=== PATIENT | female | born 1955 | race Caucasian/White ===

== ENCOUNTER 2019-01-24 16:10 | Emergency (ER) | payer MEDICARE, OTHER ==
[2019-01-24 17:13] LABS: INR-International Normal Ratio 1.2; Prothrombin Time 14.9 SEC (12.0-14.7)
[2019-01-24 17:19] LABS: PTT 22.7 SEC (22.9-36.1)
[2019-01-24 17:20] LABS: #Lymphocytes 0.5 thou/uL (1.20-3.40); #Monocytes 0.5 thou/uL (0.11-0.59); #Neutrophils 3.7 thou/uL (1.40-6.50); %Basophils 0.2 % (0.0-1.0); %Eosinophils 0.7 % (0.0-10.0); %Lymphocytes 9.9 % (21.0-51.0); %Monocytes 9.9 % (0.0-10.0); %Neutrophils 79.3 % (42.0-75.0); Hemoglobin 13.9 g/dL (12.0-16.0); Mean Corpuscular HGB CONC 33.3 g/dL (32.0-36.0); Mean Corpuscular Hemoglobin 31.3 pg (27.0-31.0); Mean Corpuscular Volume 93.9 fL (78.0-98.0); Mean Platelet Volume 8.3 fL (7.4-10.4); Platelet Count 97 thou/uL (130-400); RBC Distribution Width 14.1 % (11.5-14.5); Red Blood Cell (RBC) Count 4.43 mill/uL (4.20-5.40); White Blood Cell (WBC) Count 4.7 thou/uL (4.8-10.8)
[2019-01-24 17:27] LABS: ALT (SGPT) 16 U/L (8-55); AST (SGOT) 26 U/L (5-34); Albumin 3.8 g/dL (3.4-4.8); Alkaline Phosphatase 123 U/L (40-150); Anion Gap 15 mmol/L (10-20); BUN (Urea Nitrogen) 21 mg/dL (9.8-20.1); Bilirubin, Total 0.8 mg/dL (0.2-1.2); Calc. Creatinine Clearance 0 mL/min (70-130); Calcium 9.8 mg/dL (7.8-10.44); Carbon Dioxide 19 mmol/L (23-31); Chloride 104 mmol/L (98-107); Estimated GFR-MDRD 48; Globulin 3.5 g/dL (2.4-3.5); Glucose 261 mg/dL (80-115); Potassium 5.3 mmol/L (3.5-5.1); Protein, Total 7.3 g/dL (6.0-8.3); Sodium 133 mmol/L (136-145)
--- NOTE | 2019-01-24 17:41 | RAD ---
Portable chest: HISTORY: Hypertension COMPARISON: none FINDINGS: Lung villasenor are clear. Heart and mediastinum appear unremarkable. Vascularity is normal. Visualized osseous structures unremarkable. Postop sternotomy change. AICD leads are noted. IMPRESSION: No acute finding
[2019-01-24 17:52] LABS: Bilirubin Small (Negative); Blood, Urine Negative (Negative); Clarity CLOUDY (Clear); Glucose, Urine (Dipstick) 500 mg/dL (Negative); Leukocyte Negative (Negative); Nitrite Positive (Negative); Protein, Urine (Dipstick) Negative (Neg-Trace); Specific Gravity, Urine 1.023 (1.002-1.036); Urobilinogen 0.2 mg/dL (0.2-1.0)
[2019-01-24 17:58] LABS: Bacteria/HPF 4+ HPF (None Seen); Hyaline Casts/LPF 0-3 HYALINE CAST LPF (0-3 Hyaline); Pathc Cast-AUWi Flag 0.54 (0-2.49); RBC/HPF 0-3 HPF (0-3); WBC/HPF 0-3 HPF (0-3)
--- NOTE | 2019-01-24 18:15 | CT ---
CT abdomen and pelvis with IV contrast. Oral contrast was not administered. INDICATIONS: Bloody stool and diarrhea. Abdominal pain. COMPARISON: CT abdomen pelvis 11/17/2016 FINDINGS: Numerous small nodules are seen in the right lung base at least one of which is calcified. These appe ar stable from prior exam. Liver, spleen, and pancreas appear unremarkable. Stomach and duodenum appear unremarkable. Adrenal glands appear normal. Bilateral renal cystic lesions or cysts appear stable. The largest cyst in the left kidney measures 5 .5 cm. Small bowel loops are normal caliber and exhibit normal fold pattern. Appendix is not definitely identified. There is inflammatory stranding in the mesentery surrounding t he tip of the cecum. This is a new finding. Transverse colon and left colon are poorly distended. There is evidence of diffuse mural thickening s uggesting colitis. Aorta is normal caliber. No evidence of retroperitoneal or mesenteric adenopathy. Evidence of hysterectomy. Urinary bladder is contracted. Subcutaneous tissues, abdominal wall, and muscular structures appear unremarkable. Osseous structures appear unremarkable. IMPRESSION: 1. Inflammatory change involving the distal cecum. Appendix is not definitely identified. Mural thick ening involving the transverse colon and left colon suggesting diffuse colitis. Mild inflammatory changes surrounding the descending colon.
== END 2019-01-24 19:23 | disposition home or self-care (01) ==
LOC: ERS 16:10
DX: K52.9 Noninfective gastroenteritis and colitis, unspecified (principal); E86.0 Dehydration; I95.9 Hypotension, unspecified; N39.0 Urinary tract infection, site not specified; E11.9 Type 2 diabetes mellitus without complications; I10 Essential (primary) hypertension; E03.9 Hypothyroidism, unspecified; D50.9 Iron deficiency anemia, unspecified; I25.10 Atherosclerotic heart disease of native coronary artery without angina pectoris; D69.6 Thrombocytopenia, unspecified
CPT/HCPCS: 36415; 71045; 74177; 80053; 81003; 81015; 83605; 83735; 84443; 84484; 85025; 85610; 85730; 86850; 86900; 86901; 93005; 96360

== ENCOUNTER 2023-05-01 13:57 | Inpatient (IN) | payer MEDICARE, OTHER ==
[2023-05-01 17:42] VITALS: BMI 25.7
[2023-05-01] MEDS ORDERED: Dextrose 5% in Water 1,000 ML IV PRN (20:11)
[2023-05-01] MEDS ORDERED: HumaLOG 300 UNITS/3 ML VIAL SC PRN ×2 (20:11)
[2023-05-01] MEDS ORDERED: Glucagon 1 MG/ML KIT IM PRN (20:11)
[2023-05-01] MEDS ORDERED: Dextrose 50% Abboject 50 ML SYRINGE SLOW IVP PRN (20:11)
[2023-05-01] MEDS ORDERED: UBIDECARENONE 10 MG PO SCH (21:00)
[2023-05-01] MEDS ORDERED: Allopurinol 100 MG TAB PO SCH ×2 (21:00→22:00)
[2023-05-01] MEDS ORDERED: metFORMIN XR 500 MG ER.TAB PO SCH ×2 (21:00→22:00)
[2023-05-01 21:26] LABS: Anion Gap 12 mmol/L (10-20); BUN (Urea Nitrogen) 25 mg/dL (9.8-20.1); Calc. Creatinine Clearance 32 mL/min (70-130); Calcium 9.3 mg/dL (7.8-10.44); Carbon Dioxide 23 mmol/L (23-31); Chloride 104 mmol/L (98-107); Estimated GFR 30; Glucose 153 mg/dL (80-115); Potassium 5.9 mmol/L (3.5-5.1); Sodium 133 mmol/L (136-145)
[2023-05-01] MEDS: Sotalol HCl 80 MG TAB PO SCH (21:31)
[2023-05-01] MEDS: Docusate 100 MG CAP PO SCH (21:32)
[2023-05-01] MEDS: Aspirin 81 mg Enteric Coated Tablet PO SCH (21:33)
[2023-05-01] MEDS: Clopidogrel Bisulfate 75 MG TAB PO SCH (21:33)
[2023-05-01] MEDS: Cyclobenzaprine 10 MG TAB PO SCH (21:33)
[2023-05-01] MEDS: Magnesium Oxide 250 MG TAB PO SCH (21:34)
[2023-05-01] MEDS: Ranolazine 500 MG ER.TAB PO SCH (21:34)
[2023-05-01] MEDS: Rosuvastatin 20 MG TAB PO SCH (21:35)
[2023-05-01] MEDS: HYDROcodone/Acetaminophen 5/325 mg Tablet PO PRN (21:37)
[2023-05-01] MEDS: Levothyroxine Sodium 88 MCG TAB PO SCH (21:49)
[2023-05-01] MEDS ORDERED: Fentanyl 100 MCG/2 ML VIAL SLOW IVP PRN (21:51)
[2023-05-01] MEDS ORDERED: Sodium Chloride 0.9% 1,000 ML IV SCH (22:00)
[2023-05-01] MEDS ORDERED: Tamsulosin HCl 0.4 MG CAP PO SCH (22:15)
[2023-05-01] MEDS ORDERED: CALCIUM GLUC 1 GM/NS 50 ML 1 GM in Premix Bag 1 BAG IVPB SCH (22:30)
[2023-05-01] MEDS ORDERED: LOKELMA 10 GM PACKET PO SCH (22:45)
[2023-05-01] MEDS ORDERED: Acetaminophen 500 MG TAB PO SCH (22:45)
[2023-05-01] MEDS: Ondansetron ODT 4 MG TAB PO PRN (23:34)
[2023-05-02] MEDS ORDERED: fentaNYL 50 mcg/mL 1 mL Vial SLOW IVP PRN ×2 (00:24→16:15)
[2023-05-02] MEDS ORDERED: HYDROcodone/Acetaminophen 5/325 mg Tablet PO SCH (01:45)
[2023-05-02 02:28] LABS: Anion Gap 14 mmol/L (10-20); BUN (Urea Nitrogen) 26 mg/dL (9.8-20.1); Calc. Creatinine Clearance 30 mL/min (70-130); Calcium 9.5 mg/dL (7.8-10.44); Carbon Dioxide 21 mmol/L (23-31); Chloride 101 mmol/L (98-107); Estimated GFR 28; Glucose 144 mg/dL (80-115); Potassium 5.4 mmol/L (3.5-5.1); Sodium 131 mmol/L (136-145)
[2023-05-02] MEDS: Ondansetron ODT 4 MG TAB PO PRN ×3 (03:13→14:46)
[2023-05-02 05:58] LABS: #Eosinphils 0.1 thou/uL (0.0-0.7); #Monocytes 0.5 thou/uL (0.11-0.59); %Basophils 0.2 % (0.0-1.0); %Eosinophils 1.1 % (0.0-10.0); %Lymphocytes 10.9 % (21.0-51.0); %Monocytes 10.3 % (0.0-10.0); %Neutrophils 76.9 % (42.0-75.0); Hematocrit 35.9 % (36.0-47.0); Hemoglobin 12.2 g/dL (12.0-16.0); Mean Corpuscular Hemoglobin 31.8 pg (27.0-31.0); Mean Corpuscular Volume 93.5 fl (78.0-98.0); RBC Distribution Width 12.2 % (11.5-14.5); Red Blood Cell (RBC) Count 3.84 mill/uL (4.20-5.40); White Blood Cell (WBC) Count 5.2 10x3/uL (4.8-10.8)
[2023-05-02 06:01] LABS: Platelet Count 82 10x3/uL (130-400)
[2023-05-02 07:17] LABS: ALT (SGPT) 17 U/L (8-55); AST (SGOT) 23 U/L (5-34); Alkaline Phosphatase 103 U/L (40-110); Anion Gap 13 mmol/L (10-20); BUN (Urea Nitrogen) 27 mg/dL (9.8-20.1); Bilirubin, Total 0.5 mg/dL (0.2-1.2); Calc. Creatinine Clearance 30 mL/min (70-130); Calcium 9.6 mg/dL (7.8-10.44); Carbon Dioxide 22 mmol/L (23-31); Chloride 102 mmol/L (98-107); Estimated GFR 28; Globulin 3.1 g/dL (2.4-3.5); Glucose 178 mg/dL (80-115); Potassium 5.7 mmol/L (3.5-5.1); Protein, Total 7.1 g/dL (5.8-8.1); Sodium 131 mmol/L (136-145)
[2023-05-02] MEDS: Cyclobenzaprine 10 MG TAB PO SCH ×2 (08:33→20:42)
[2023-05-02] MEDS: Acetaminophen 500 MG TAB PO SCH ×3 (08:34→20:42)
[2023-05-02] MEDS ORDERED: Acetaminophen 500 MG TAB PO SCH (09:00)
[2023-05-02] MEDS: HYDROcodone/Acetaminophen 5/325 mg Tablet PO PRN ×2 (10:04→20:47)
[2023-05-02] MEDS ORDERED: Meperidine HCl/PF 25 MG/ML VIAL SLOW IVP PRN (14:12)
[2023-05-02 17:01] LABS: Anion Gap 13 mmol/L (10-20); BUN (Urea Nitrogen) 27 mg/dL (9.8-20.1); Calc. Creatinine Clearance 29 mL/min (70-130); Calcium 9.3 mg/dL (7.8-10.44); Carbon Dioxide 24 mmol/L (23-31); Chloride 101 mmol/L (98-107); Estimated GFR 27; Glucose 185 mg/dL (80-115); Potassium 4.8 mmol/L (3.5-5.1); Sodium 133 mmol/L (136-145)
[2023-05-02] MEDS: Magnesium Oxide 250 MG TAB PO SCH (20:37)
[2023-05-02] MEDS: Clopidogrel Bisulfate 75 MG TAB PO SCH (20:38)
[2023-05-02] MEDS: Aspirin 81 mg Enteric Coated Tablet PO SCH (20:38)
[2023-05-02] MEDS: Rosuvastatin 20 MG TAB PO SCH (20:39)
[2023-05-02] MEDS: Ranolazine 500 MG ER.TAB PO SCH (20:39)
[2023-05-02] MEDS: Levothyroxine Sodium 88 MCG TAB PO SCH (20:40)
[2023-05-02] MEDS: Docusate 100 MG CAP PO SCH (20:40)
[2023-05-02] MEDS: Sotalol HCl 80 MG TAB PO SCH (20:41)
[2023-05-02] MEDS ORDERED: Tamsulosin HCl 0.4 MG CAP PO SCH (21:00)
[2023-05-02] MEDS ORDERED: HYDROcodone/Acetaminophen 5/325 mg Tablet PO PRN (22:20)
[2023-05-03 05:09] LABS: #Eosinphils 0.1 thou/uL (0.0-0.7); #Monocytes 0.7 thou/uL (0.11-0.59); #Neutrophils 4.8 thou/uL (1.40-6.50); %Basophils 0.3 % (0.0-1.0); %Eosinophils 1.2 % (0.0-10.0); %Lymphocytes 12.7 % (21.0-51.0); %Monocytes 10.7 % (0.0-10.0); %Neutrophils 74.2 % (42.0-75.0); Hematocrit 34.7 % (36.0-47.0); Hemoglobin 11.7 g/dL (12.0-16.0); Mean Corpuscular HGB CONC 33.7 g/dL (32.0-36.0); Mean Corpuscular Hemoglobin 31.2 pg (27.0-31.0); Mean Corpuscular Volume 92.5 fl (78.0-98.0); Mean Platelet Volume 10.8 fL (7.4-10.4); RBC Distribution Width 12.2 % (11.5-14.5); Red Blood Cell (RBC) Count 3.75 mill/uL (4.20-5.40); White Blood Cell (WBC) Count 6.5 10x3/uL (4.8-10.8)
[2023-05-03 05:45] LABS: Platelet Count 76 10x3/uL (130-400)
[2023-05-03 05:49] LABS: ALT (SGPT) 14 U/L (8-55); AST (SGOT) 18 U/L (5-34); Albumin 3.8 g/dL (3.4-4.8); Alkaline Phosphatase 99 U/L (40-110); Anion Gap 15 mmol/L (10-20); BUN (Urea Nitrogen) 27 mg/dL (9.8-20.1); Bilirubin, Total 0.5 mg/dL (0.2-1.2); Calc. Creatinine Clearance 30 mL/min (70-130); Calcium 9.4 mg/dL (7.8-10.44); Carbon Dioxide 21 mmol/L (23-31); Chloride 103 mmol/L (98-107); Estimated GFR 28; Glucose 128 mg/dL (80-115); Potassium 4.8 mmol/L (3.5-5.1); Protein, Total 6.8 g/dL (5.8-8.1); Sodium 134 mmol/L (136-145)
[2023-05-03] MEDS: Cyclobenzaprine 10 MG TAB PO SCH (08:01)
[2023-05-03] MEDS: Acetaminophen 500 MG TAB PO SCH ×2 (08:01→14:44)
[2023-05-03 11:15] VITALS: BP 93/51; TEMP 98.3
[2023-05-03] MEDS ORDERED: Atorvastatin Calcium 40 MG TAB PO SCH (21:00)
[2023-05-08] MEDS ORDERED: FILGRASTIM SNDZ 480 MCG/0.8 ML SC SCH (09:00)
== END 2023-05-03 16:52 | disposition home or self-care (01) | DRG 694 ==
LOC: T4-B 17:14 → 2SW 05-02 00:08 → OBSVTOIN 05-02 11:22
PROVIDERS: ADMIT Student in an Organized Health Care Education/Training Program; ATTEND Student in an Organized Health Care Education/Training Program
DX: N13.1 Hydronephrosis with ureteral stricture, not elsewhere classified (principal); E87.1 Hypo-osmolality and hyponatremia; E27.1 Primary adrenocortical insufficiency; N17.9 Acute kidney failure, unspecified; G89.29 Other chronic pain; E03.9 Hypothyroidism, unspecified; I25.10 Atherosclerotic heart disease of native coronary artery without angina pectoris; I12.9 Hypertensive chronic kidney disease with stage 1 through stage 4 chronic kidney disease, or unspecified chronic kidney disease; E11.22 Type 2 diabetes mellitus with diabetic chronic kidney disease; E87.5 Hyperkalemia; N18.31 Chronic kidney disease, stage 3a; Z95.1 Presence of aortocoronary bypass graft; Z90.710 Acquired absence of both cervix and uterus; Z87.891 Personal history of nicotine dependence; Z95.810 Presence of automatic (implantable) cardiac defibrillator
CPT/HCPCS: 36415; 36416; 80053; 82024; 82088; 82570; 84300; 84540; 84550; 85025; 93005; 93010; J0613; J1650; J3010; J7050; Q0162